=== PATIENT | male | born 1940 | race Caucasian/White ===

== ENCOUNTER 2016-09-17 14:39 | Inpatient (IN) | payer MEDICARE, OTHER ==
[~2016-09-17] VITALS: Ht 170.2 cm; Wt 60.8 kg
[~2016-09-17 14:39] MED LIST: ADV100 IH; ALBU8HFA IH; AMIN30LI28 PO; APIX5TAB PO; BUDE0.5A6 NEB; CYCL10 PO; DIVA500T35 PO; FOLI1 PO; GABA-529 PO; LEVE500T8 PO; LORA1TAB3 PO; MULT-29 PO; PANT40TA PO; SENN-161 PO; TOPI100 PO; ZOLP5 PO
[2016-09-17] MEDS ORDERED: SODIUM CHLORIDE 0.9% 100 ML ONE (14:54)
[2016-09-17] MEDS ORDERED: IOVERSOL 350 MG/ML 100 ML VIAL ONE (14:54)
[2016-09-17 14:56] LABS: BASOPHILS # (AUTO) 0.03 K/uL (0.00-0.20); BASOPHILS % (AUTO) 0.3 % (0.0-2.0); EOSINOPHILS # (AUTO) 0.16 K/uL (0.00-0.70); EOSINOPHILS % (AUTO) 1.67 % (1.0-6.0); HEMATOCRIT 38.6 % (41-53); HEMOGLOBIN 12.4 g/dL (13.5-17.5); LYMPHOCYTES % (AUTO) 21.1 % (22.0-44.0); MEAN CORPUSCULAR HEMOGLOBIN 29.1 pg (26.0-34.0); MEAN CORPUSCULAR HGB CONC 32.1 G/dL (31.0-37.0); MEAN CORPUSCULAR VOLUME 91 fL (80-100); MONOCYTES # (AUTO) 0.8 K/uL (0.1-1.0); MONOCYTES % (AUTO) 8.1 % (2.0-9.0); NEUTROPHILS # (AUTO) 6.6 K/uL (1.8-7.7); NEUTROPHILS % (AUTO) 68.8 % (40.0-70.0); PLATELET COUNT (AUTO) 312 K/uL (150-450); RED BLOOD CELL COUNT(AUTO) 4.26 MIL/uL (4.50-5.90); RED CELL DISTRIBUTION WIDTH 13.8 % (11.5-14.5); WHITE BLOOD COUNT (AUTO) 9.7 K/uL (4.5-11.0)
[2016-09-17 15:13] LABS: ANION GAP 10 mmol/L (8-16); CALCIUM, TOTAL 8.6 mg/dL (8.8-10.5); CARBON DIOXIDE 28 mmol/L (22-29); CHLORIDE 106 mmol/L (98-107); CREATININE 0.78 mg/dL (0.60-1.30); GLOMERULAR FILTR. RATE CALC > 60 mL/min (>60); POTASSIUM 4.8 mmol/L (3.5-5.1); SODIUM SERUM 144 mmol/L (136-145); UREA NITROGEN, BLOOD 20 mg/dL (7-18)
[2016-09-17] MEDS ORDERED: BACL10TA PO (15:19)
[2016-09-17] MEDS ORDERED: VITAD1000 PO (15:19)
[2016-09-17] MEDS ORDERED: ASPI81 PO (15:19)
[2016-09-17] MEDS ORDERED: FAMO20 PO (15:19)
[2016-09-17] MEDS ORDERED: CLOP75 PO (15:19)
[2016-09-17 15:20] LABS: ALANINE AMINOTRANSFERASE 42 U/L (12-78); ALBUMIN 2.7 g/dL (3.4-5.0); ASPARTATE AMINOTRANSFERASE 36 U/L (15-37); BILIRUBIN,TOTAL 0.2 mg/dL (0.1-1.0); CREATINE KINASE, TOTAL 71 U/L (39-308); TOTAL PROTEIN, SERUM 6.8 g/dL (6.4-8.2)
[2016-09-17 18:00] VITALS: BP 123/71
[2016-09-17 20:00] VITALS: BP 130/75
[2016-09-17] MEDS ORDERED: IPRATROPIUM BROMIDE 0.5 MG/2.5 ML NEB SOLUTION NEB PRN (22:30)
[2016-09-17] MEDS ORDERED: ZOLPIDEM TARTRATE 5 MG TABLET PO PRN (22:30)
[2016-09-17] MEDS ORDERED: BISACODYL 10 MG RECTAL RECTAL SUPPOSITORY PR PRN (22:30)
[2016-09-17] MEDS ORDERED: MAGNESIUM HYDROXIDE SUSPENSION 30 ML UDCUP PO PRN (22:30)
[2016-09-17] MEDS ORDERED: LORazepam 1 MG TABLET PO PRN (22:30)
[2016-09-17] MEDS ORDERED: ALBUTEROL SULFATE 2.5 MG/0.5 ML NEB SOLUTION NEB PRN (22:30)
[2016-09-17] MEDS ORDERED: ONDANSETRON HCL 4 MG/2 ML VIAL IVP PRN (22:30)
[2016-09-18] VITALS (10 sets, daily range): BP systolic 117–166; BP diastolic 73–91
[2016-09-18 06:31] LABS: ANION GAP 11 mmol/L (8-16); CALCIUM, TOTAL 8.9 mg/dL (8.8-10.5); CARBON DIOXIDE 26 mmol/L (22-29); CHLORIDE 105 mmol/L (98-107); CREATINE KINASE, TOTAL 93 U/L (39-308); CREATININE 0.59 mg/dL (0.60-1.30); GLOMERULAR FILTR. RATE CALC > 60 mL/min (>60); POTASSIUM 4.5 mmol/L (3.5-5.1); SODIUM SERUM 142 mmol/L (136-145); THYROID STIMULATING HORMONE 2.22 uIU/mL (0.36-3.74); UREA NITROGEN, BLOOD 15 mg/dL (7-18)
[2016-09-18 06:46] LABS: CREATINE KINASE MB < 0.5 ng/mL (0-5)
[2016-09-18 07:23] LABS: BASOPHILS % (AUTO) 0.5 % (0.0-2.0); EOSINOPHILS % (AUTO) 1.3 % (1.0-6.0); HEMATOCRIT 41.9 % (41-53); HEMOGLOBIN 13.4 g/dL (13.5-17.5); LYMPHOCYTES # (AUTO) 2.3 K/uL (1.0-4.8); LYMPHOCYTES % (AUTO) 21.5 % (22.0-44.0); MEAN CORPUSCULAR HEMOGLOBIN 29.1 pg (26.0-34.0); MEAN CORPUSCULAR HGB CONC 31.9 G/dL (31.0-37.0); MEAN CORPUSCULAR VOLUME 91 fL (80-100); MONOCYTES # (AUTO) 0.7 K/uL (0.1-1.0); MONOCYTES % (AUTO) 6.9 % (2.0-9.0); NEUTROPHILS # (AUTO) 7.4 K/uL (1.8-7.7); NEUTROPHILS % (AUTO) 69.8 % (40.0-70.0); PLATELET COUNT (AUTO) 346 K/uL (150-450); RED BLOOD CELL COUNT(AUTO) 4.59 MIL/uL (4.50-5.90); RED CELL DISTRIBUTION WIDTH 14.1 % (11.5-14.5); WHITE BLOOD COUNT (AUTO) 10.6 K/uL (4.5-11.0)
[2016-09-18 08:04] LABS: VITAMIN B12 LEVEL 611 pg/mL (211-911)
[2016-09-18] MEDS: FOLIC ACID 1 MG TABLET PO SCH (08:40)
[2016-09-18] MEDS: LevETIRAcetam 500 MG TABLET PO SCH ×2 (08:40→20:24)
[2016-09-18] MEDS: FLUTICASONE/VILANTEROL 200-25 MCG/INH INHALER [14] IH SCH (08:40)
[2016-09-18] MEDS: MULTIVITAMINS WITH MINERALS, THERAPEUTIC TABLET PO SCH (08:41)
[2016-09-18] MEDS: SENNA 187 MG TABLET PO SCH (08:41)
[2016-09-18] MEDS: GABAPENTIN 100 MG CAPSULE PO SCH ×4 (08:41→20:24)
[2016-09-18] MEDS: CHOLECALCIFEROL (VIT D3) 1,000 UNITS TABLET PO SCH (08:41)
[2016-09-18] MEDS: BACLOFEN 10 MG TABLET PO SCH ×3 (08:41→20:24)
[2016-09-18] MEDS: PANTOPRAZOLE SODIUM 40 MG DR TABLET PO SCH (08:41)
[2016-09-18] MEDS: FAMOTIDINE 20 MG TABLET PO SCH ×2 (08:41→20:24)
[2016-09-18 09:28] LABS: ERYTHROCYTE SEDIMENTATION RATE 38 MM/HR (0-15)
[2016-09-18] MEDS: ACETAMINOPHEN 500 MG TABLET PO PRN (12:00)
[2016-09-18] MEDS: OxyCODONE HCL 5 MG IR TABLET PO PRN ×2 (13:23→23:53)
[2016-09-19 04:33] VITALS: BP 134/75
[2016-09-19] MEDS: OxyCODONE HCL 5 MG IR TABLET PO PRN ×2 (06:11→19:07)
[2016-09-19 06:41] LABS: BASOPHILS # (AUTO) 0.04 K/uL (0.00-0.20); BASOPHILS % (AUTO) 0.4 % (0.0-2.0); EOSINOPHILS # (AUTO) 0.13 K/uL (0.00-0.70); EOSINOPHILS % (AUTO) 1.26 % (1.0-6.0); HEMATOCRIT 40.4 % (41-53); HEMOGLOBIN 12.9 g/dL (13.5-17.5); LYMPHOCYTES # (AUTO) 2.7 K/uL (1.0-4.8); LYMPHOCYTES % (AUTO) 25.4 % (22.0-44.0); MEAN CORPUSCULAR HEMOGLOBIN 29.3 pg (26.0-34.0); MEAN CORPUSCULAR HGB CONC 31.9 G/dL (31.0-37.0); MEAN CORPUSCULAR VOLUME 92 fL (80-100); MONOCYTES % (AUTO) 9.5 % (2.0-9.0); NEUTROPHILS # (AUTO) 6.7 K/uL (1.8-7.7); NEUTROPHILS % (AUTO) 63.5 % (40.0-70.0); PLATELET COUNT (AUTO) 323 K/uL (150-450); RED BLOOD CELL COUNT(AUTO) 4.39 MIL/uL (4.50-5.90); RED CELL DISTRIBUTION WIDTH 14.4 % (11.5-14.5); WHITE BLOOD COUNT (AUTO) 10.5 K/uL (4.5-11.0)
[2016-09-19 06:50] LABS: ANION GAP 9 mmol/L (8-16); CALCIUM, TOTAL 9.3 mg/dL (8.8-10.5); CARBON DIOXIDE 29 mmol/L (22-29); CHLORIDE 106 mmol/L (98-107); CREATININE 0.72 mg/dL (0.60-1.30); GLOMERULAR FILTR. RATE CALC > 60 mL/min (>60); SODIUM SERUM 144 mmol/L (136-145); UREA NITROGEN, BLOOD 13 mg/dL (7-18)
[2016-09-19 07:27] VITALS: BP 135/84
[2016-09-19] MEDS: FLUTICASONE/VILANTEROL 200-25 MCG/INH INHALER [14] IH SCH (09:03)
[2016-09-19] MEDS: GABAPENTIN 100 MG CAPSULE PO SCH ×4 (09:03→20:05)
[2016-09-19] MEDS: PANTOPRAZOLE SODIUM 40 MG DR TABLET PO SCH (09:03)
[2016-09-19] MEDS: FAMOTIDINE 20 MG TABLET PO SCH ×2 (09:04→20:05)
[2016-09-19] MEDS: SENNA 187 MG TABLET PO SCH (09:04)
[2016-09-19] MEDS: FOLIC ACID 1 MG TABLET PO SCH (09:04)
[2016-09-19] MEDS: MULTIVITAMINS WITH MINERALS, THERAPEUTIC TABLET PO SCH (09:04)
[2016-09-19] MEDS: BACLOFEN 10 MG TABLET PO SCH ×3 (09:04→20:05)
[2016-09-19] MEDS: CHOLECALCIFEROL (VIT D3) 1,000 UNITS TABLET PO SCH (09:04)
[2016-09-19] MEDS: LevETIRAcetam 500 MG TABLET PO SCH ×2 (09:04→20:05)
[2016-09-19 11:26] VITALS: BP 119/71
[2016-09-19 15:15] VITALS: BP 116/72
[2016-09-19 19:40] VITALS: BP 132/79
[2016-09-20] VITALS: BP 129/72
[2016-09-20 05:33] VITALS: BP 113/72
[2016-09-20 07:44] VITALS: BP 133/79
[2016-09-20 08:10] LABS: BASOPHILS % (AUTO) 0.5 % (0.0-2.0); EOSINOPHILS % (AUTO) 1.2 % (1.0-6.0); HEMATOCRIT 42.7 % (41-53); HEMOGLOBIN 13.4 g/dL (13.5-17.5); LYMPHOCYTES # (AUTO) 2.3 K/uL (1.0-4.8); LYMPHOCYTES % (AUTO) 22.5 % (22.0-44.0); MEAN CORPUSCULAR HEMOGLOBIN 28.7 pg (26.0-34.0); MEAN CORPUSCULAR HGB CONC 31.4 G/dL (31.0-37.0); MEAN CORPUSCULAR VOLUME 92 fL (80-100); MONOCYTES # (AUTO) 0.7 K/uL (0.1-1.0); NEUTROPHILS % (AUTO) 68.8 % (40.0-70.0); PLATELET COUNT (AUTO) 299 K/uL (150-450); RED BLOOD CELL COUNT(AUTO) 4.66 MIL/uL (4.50-5.90); WHITE BLOOD COUNT (AUTO) 10.1 K/uL (4.5-11.0)
[2016-09-20 08:18] LABS: ANION GAP 8 mmol/L (8-16); CALCIUM, TOTAL 8.9 mg/dL (8.8-10.5); CARBON DIOXIDE 29 mmol/L (22-29); CHLORIDE 106 mmol/L (98-107); CREATININE 0.68 mg/dL (0.60-1.30); GLOMERULAR FILTR. RATE CALC > 60 mL/min (>60); POTASSIUM 4.2 mmol/L (3.5-5.1); SODIUM SERUM 143 mmol/L (136-145); UREA NITROGEN, BLOOD 13 mg/dL (7-18)
[2016-09-20] MEDS: FLUTICASONE/VILANTEROL 200-25 MCG/INH INHALER [14] IH SCH (08:48)
[2016-09-20] MEDS: GABAPENTIN 100 MG CAPSULE PO SCH ×2 (08:49→13:12)
[2016-09-20] MEDS: LevETIRAcetam 500 MG TABLET PO SCH (08:49)
[2016-09-20] MEDS: FAMOTIDINE 20 MG TABLET PO SCH (08:49)
[2016-09-20] MEDS: FOLIC ACID 1 MG TABLET PO SCH (08:49)
[2016-09-20] MEDS: PANTOPRAZOLE SODIUM 40 MG DR TABLET PO SCH (08:49)
[2016-09-20] MEDS: BACLOFEN 10 MG TABLET PO SCH (08:49)
[2016-09-20] MEDS: MULTIVITAMINS WITH MINERALS, THERAPEUTIC TABLET PO SCH (08:50)
[2016-09-20] MEDS: SENNA 187 MG TABLET PO SCH (08:50)
[2016-09-20] MEDS: CHOLECALCIFEROL (VIT D3) 1,000 UNITS TABLET PO SCH (08:50)
[2016-09-20] MEDS: OxyCODONE HCL 5 MG IR TABLET PO PRN (08:52)
[2016-09-20] MEDS ORDERED: PANT40TA PO (09:48)
[2016-09-20] MEDS ORDERED: ACET-66 PO (09:49)
[2016-09-20] MEDS ORDERED: IPRNEB IH (09:50)
[2016-09-20] MEDS ORDERED: BISA10S PR (09:50)
[2016-09-20] MEDS ORDERED: AUD NEB (09:50)
[2016-09-20] MEDS ORDERED: ONDA4 PO (09:51)
[2016-09-20] MEDS ORDERED: MOM30 PO (09:51)
[2016-09-20] MEDS ORDERED: OXYC5 PO (09:52)
[2016-09-20 11:21] VITALS: BP 136/82
[2016-09-20] MEDS: ACETAMINOPHEN 500 MG TABLET PO PRN (14:01)
== END 2016-09-20 14:30 | DRG 65 ==
LOC: EMS 14:41 → ICU 15:57 → 5S 09-18 15:50 → 5N 09-19 21:10
PROVIDERS: ADMIT Internal Medicine Geriatric Medicine; ATTEND Internal Medicine Geriatric Medicine
DX: I63.9 Cerebral infarction, unspecified (principal); J98.11 Atelectasis; E46 Unspecified protein-calorie malnutrition; I69.354 Hemiplegia and hemiparesis following cerebral infarction affecting left non-dominant side; R56.9 Unspecified convulsions; K74.60 Unspecified cirrhosis of liver; J44.9 Chronic obstructive pulmonary disease, unspecified; F01.50 Vascular dementia, unspecified severity, without behavioral disturbance, psychotic disturbance, mood disturbance, and anxiety; B19.20 Unspecified viral hepatitis C without hepatic coma; F17.210 Nicotine dependence, cigarettes, uncomplicated; F10.20 Alcohol dependence, uncomplicated; M48.02 Spinal stenosis, cervical region; D64.9 Anemia, unspecified; G40.909 Epilepsy, unspecified, not intractable, without status epilepticus; I10 Essential (primary) hypertension; R23.3 Spontaneous ecchymoses; Z88.0 Allergy status to penicillin; Z88.6 Allergy status to analgesic agent; Z88.5 Allergy status to narcotic agent; Z88.8 Allergy status to other drugs, medicaments and biological substances; Z79.01 Long term (current) use of anticoagulants; Z79.899 Other long term (current) drug therapy; Z86.718 Personal history of other venous thrombosis and embolism; Z90.49 Acquired absence of other specified parts of digestive tract; Z98.1 Arthrodesis status; Z68.21 Body mass index [BMI] 21.0-21.9, adult
CPT/HCPCS: 70551; 82105; 82306; 82607; 82746; 83036; 83735; 84439; 84443; 85651; 87081; 92526; 92610; 93005; 93970; 97163; 99291; J7050

== ENCOUNTER 2022-04-08 09:46 | Inpatient (IN) | payer MEDICARE, MEDICAID ==
[~2022-04-08] VITALS: Ht 167.6 cm; Wt 73.2 kg
[~2022-04-08 09:46] MED LIST changes: +ACET-66 PO; -ADV100 IH; -ALBU8HFA IH; -AMIN30LI28 PO; +AMLO2.5T29 PO; -APIX5TAB PO; +ASPI-1450 PO; +AUD NEB; +BACL10TA PO; +BISA10S PR; -BUDE0.5A6 NEB; +CEFTR1IV IV; +CHOL100018 PO; +CLOP75TA60 PO; -CYCL10 PO; -DIVA500T35 PO; +FAMO20 PO; +FLUT1BLS IH; +FLUT1DIS4 IH; +FOLI-130 PO; -FOLI1 PO; +GABA-1216 PO; -GABA-529 PO; +IPRNEB IH; +LORA-1000 PO; -LORA1TAB3 PO; +MAGN-169 PO; +ONDA-104 PO; +OXYC5 PO; -TOPI100 PO; +ZOLP-280 PO; -ZOLP5 PO
[2022-04-08] MEDS ORDERED: ALBUTEROL SULFATE 2.5 MG/0.5 ML NEB SOLUTION NEB ONE (10:00)
[2022-04-08 11:36] LABS: BASOPHILS % (AUTO) 0.4 % (0.0-2.0); EOSINOPHILS % (AUTO) 0.4 % (1.0-6.0); HEMATOCRIT 37.1 % (41-53); HEMOGLOBIN 11.6 g/dL (13.5-17.5); LYMPHOCYTES % (AUTO) 13.8 % (22.0-44.0); MEAN CORPUSCULAR HEMOGLOBIN 28.8 pg (26.0-34.0); MEAN CORPUSCULAR HGB CONC 31.4 G/dL (31.0-37.0); MEAN CORPUSCULAR VOLUME 92 fL (80-100); MONOCYTES # (AUTO) 1.3 K/uL (0.1-1.0); MONOCYTES % (AUTO) 8.9 % (2.0-9.0); NEUTROPHILS % (AUTO) 76.5 % (40.0-70.0); PLATELET COUNT (AUTO) 393 K/uL (150-450); RED BLOOD CELL COUNT(AUTO) 4.05 MIL/uL (4.50-5.90); RED CELL DISTRIBUTION WIDTH 14.8 % (11.5-14.5)
[2022-04-08 11:51] LABS: CALCIUM, TOTAL 8.7 mg/dL (8.8-10.5); CREATININE 2.04 mg/dL (0.60-1.30)
[2022-04-08 11:56] LABS: ALBUMIN 1.9 g/dL (3.4-5.0); BILIRUBIN,TOTAL 0.3 mg/dL (0.1-1.0); TOTAL PROTEIN, SERUM 8.1 g/dL (6.4-8.2)
[2022-04-08] MEDS ORDERED: AZITHROMYCIN 500 MG/NS 250 ML IV ONE (13:45)
[2022-04-08 14:17] LABS: APPEARANCE,URINE HAZY (CLEAR); BILIRUBIN,URINE NEGATIVE (NEGATIVE); GLUCOSE, URINE (UA) NEGATIVE (NEGATIVE); KETONES,URINE NEGATIVE (NEGATIVE); LEUKOCYTE ESTERASE ,URINE LARGE (NEGATIVE); NITRATE,URINE NEGATIVE (NEGATIVE); OCCULT BLOOD,URINE TRACE (NEGATIVE); PROTEIN,URINE 30-70 mg/dL (NEGATIVE); SPECIFIC GRAVITIY, URINE 1.018 (1.003-1.030); UROBILINOGEN,URINE <=1.0 mg/dL (<=1.0)
[2022-04-08 14:28] LABS: BACTERIA,URINE Many /HPF (None Seen); RBC,URINE 0-2 /HPF (0-2); WBC,URINE 51-100 /HPF (0-5)
[2022-04-08] MEDS ORDERED: PENTETATE DTPA TC99M/MCL ISOTOPE 1 EA INJ INJ ONE (15:45)
[2022-04-08] MEDS ORDERED: MAA ALBUMIN AGGREGATED TC99M/UD<10MCL ISOTOPE 1 EA INJ INJ ONE (16:05)
[2022-04-08] MEDS ORDERED: ONDANSETRON HCL 4 MG/2 ML VIAL IVP PRN (16:45)
[2022-04-08] MEDS ORDERED: ACETAMINOPHEN 325 MG TABLET PO PRN (16:45)
[2022-04-08] MEDS ORDERED: BENZONATATE 100 MG CAPSULE PO PRN (16:45)
[2022-04-08] MEDS ORDERED: ALBUTEROL SULFATE 2.5 MG/0.5 ML NEB SOLUTION NEB PRN (16:45)
[2022-04-08] MEDS ORDERED: IPRATROPIUM BROMIDE 0.5 MG/2.5 ML NEB SOLUTION NEB PRN (16:45)
[2022-04-08] MEDS ORDERED: BISACODYL 10 MG RECTAL RECTAL SUPPOSITORY PR PRN (16:45)
[2022-04-08] MEDS ORDERED: MAGNESIUM HYDROXIDE SUSPENSION 30 ML UDCUP PO PRN (16:45)
[2022-04-08] MEDS ORDERED: BACL5TAB PO (17:33)
[2022-04-08] MEDS ORDERED: ACET-2247 PO (17:34)
[2022-04-08] MEDS ORDERED: POLY15DR29 OU (17:34)
[2022-04-08] MEDS ORDERED: BISA-151 PO ×2 (17:43→17:45)
[2022-04-08] MEDS ORDERED: CEFX2I IM (17:43)
[2022-04-08] MEDS ORDERED: DICY20TA95 PO (17:43)
[2022-04-08] MEDS ORDERED: CIPR500T10 PO (17:45)
[2022-04-08] MEDS ORDERED: DULO-114 PO (17:45)
[2022-04-08] MEDS ORDERED: MOME13HF2 IH (17:46)
[2022-04-08] MEDS ORDERED: NA P133E4 PR (17:46)
[2022-04-08] MEDS ORDERED: GABA-1181 PO (17:46)
[2022-04-08] MEDS ORDERED: POLY17PO47 PO (17:53)
[2022-04-08] MEDS ORDERED: HYDR5TAB14 PO (17:53)
[2022-04-08] MEDS ORDERED: KETO30CR21 TP (17:53)
[2022-04-08] MEDS: MethylPREDNISolone SOD SUCC 125 MG/2 ML VIAL IVP SCH ×2 (17:59→23:24)
[2022-04-08] MEDS ORDERED: MULT-248 PO (18:01)
[2022-04-08] MEDS ORDERED: CHOL25TA4 PO (18:01)
[2022-04-08] MEDS: IPRATROPIUM BROMIDE 0.5 MG/2.5 ML NEB SOLUTION NEB SCH (20:02)
[2022-04-08] MEDS: ALBUTEROL SULFATE 2.5 MG/0.5 ML NEB SOLUTION NEB SCH (20:02)
[2022-04-08 23:00] VITALS: BP 118/72
[2022-04-08] MEDS: BENZONATATE 100 MG CAPSULE PO SCH (23:24)
[2022-04-08] MEDS: LevETIRAcetam 500 MG TABLET PO SCH (23:25)
[2022-04-08] MEDS: GuaiFENesin SR 600 MG ER TABLET PO SCH (23:25)
[2022-04-08] MEDS: DOCUSATE SODIUM 100 MG CAPSULE PO SCH (23:25)
[2022-04-08] MEDS: HEPARIN SODIUM,PORCINE 5,000 UNITS/ML VIAL SQ SCH (23:25)
[2022-04-09] MEDS: ALBUTEROL SULFATE 2.5 MG/0.5 ML NEB SOLUTION NEB SCH ×4 (02:00→20:19)
[2022-04-09] MEDS: IPRATROPIUM BROMIDE 0.5 MG/2.5 ML NEB SOLUTION NEB SCH ×4 (02:00→20:19)
[2022-04-09 05:26] VITALS: BP 135/52
[2022-04-09] MEDS: MethylPREDNISolone SOD SUCC 125 MG/2 ML VIAL IVP SCH ×3 (05:27→21:00)
[2022-04-09 07:47] VITALS: BP 120/70
[2022-04-09] MEDS: CHOLECALCIFEROL (VIT D3) 1,000 UNITS [25 MCG] TABLET PO SCH (08:54)
[2022-04-09] MEDS: ASPIRIN 81 MG CHEWABLE TABLET PO SCH (08:54)
[2022-04-09] MEDS: DOCUSATE SODIUM 100 MG CAPSULE PO SCH ×2 (08:54→21:00)
[2022-04-09] MEDS: GuaiFENesin SR 600 MG ER TABLET PO SCH ×2 (08:54→21:00)
[2022-04-09] MEDS: BENZONATATE 100 MG CAPSULE PO SCH ×3 (08:54→20:59)
[2022-04-09] MEDS: HEPARIN SODIUM,PORCINE 5,000 UNITS/ML VIAL SQ SCH ×2 (08:54→16:54)
[2022-04-09] MEDS: PANTOPRAZOLE SODIUM 40 MG DR TABLET PO SCH (08:54)
[2022-04-09] MEDS: LevETIRAcetam 500 MG TABLET PO SCH ×2 (08:55→21:00)
[2022-04-09] MEDS: FOLIC ACID 1 MG TABLET PO SCH (08:55)
[2022-04-09] MEDS: CLOPIDOGREL BISULFATE 75 MG TABLET PO SCH (08:55)
[2022-04-09] MEDS ORDERED: AmLODIPine BESYLATE 2.5 MG TABLET PO SCH (09:00)
[2022-04-09] MEDS ORDERED: SODIUM CHLORIDE 0.9% 1,000 ML ONE (09:35)
[2022-04-09 11:03] VITALS: BP 126/65
[2022-04-09] MEDS: FLUTICASONE/VILANTEROL 200-25 MCG/INH INHALER [14] IH SCH (13:12)
[2022-04-09 15:24] LABS: EOSINOPHILS % (AUTO) 0 % (1.0-6.0); HEMATOCRIT 33.6 % (41-53); HEMOGLOBIN 10.7 g/dL (13.5-17.5); LYMPHOCYTES # (AUTO) 0.9 K/uL (1.0-4.8); LYMPHOCYTES % (AUTO) 7.3 % (22.0-44.0); MEAN CORPUSCULAR HEMOGLOBIN 28.6 pg (26.0-34.0); MEAN CORPUSCULAR HGB CONC 31.9 G/dL (31.0-37.0); MEAN CORPUSCULAR VOLUME 90 fL (80-100); MONOCYTES # (AUTO) 0.3 K/uL (0.1-1.0); MONOCYTES % (AUTO) 2.1 % (2.0-9.0); NEUTROPHILS # (AUTO) 10.8 K/uL (1.8-7.7); PLATELET COUNT (AUTO) 405 K/uL (150-450); RED BLOOD CELL COUNT(AUTO) 3.74 MIL/uL (4.50-5.90); RED CELL DISTRIBUTION WIDTH 14.7 % (11.5-14.5)
[2022-04-09 15:35] LABS: CALCIUM, TOTAL 8.8 mg/dL (8.8-10.5); CREATININE 2.03 mg/dL (0.60-1.30); POTASSIUM 4.5 mmol/L (3.5-5.1)
[2022-04-09 15:36] VITALS: BP 110/50
[2022-04-09 15:37] LABS: NEUTROPHILS % (AUTO) 90.6 % (40.0-70.0)
[2022-04-09] MEDS: AZITHROMYCIN 500 MG/NS 250 ML IV SCH (15:46)
[2022-04-09 19:45] VITALS: BP 128/67
[2022-04-10] VITALS (7 sets, daily range): BP systolic 97–139; BP diastolic 60–74
[2022-04-10] MEDS: HEPARIN SODIUM,PORCINE 5,000 UNITS/ML VIAL SQ SCH ×3 (00:56→18:27)
[2022-04-10] MEDS: ZOLPIDEM TARTRATE 5 MG TABLET PO PRN (01:01)
[2022-04-10] MEDS: IPRATROPIUM BROMIDE 0.5 MG/2.5 ML NEB SOLUTION NEB SCH ×4 (02:49→20:04)
[2022-04-10] MEDS: ALBUTEROL SULFATE 2.5 MG/0.5 ML NEB SOLUTION NEB SCH ×4 (02:49→20:03)
[2022-04-10 05:51] LABS: EOSINOPHILS % (AUTO) 0 % (1.0-6.0); HEMATOCRIT 32.6 % (41-53); HEMOGLOBIN 10.6 g/dL (13.5-17.5); LYMPHOCYTES % (AUTO) 6.7 % (22.0-44.0); MEAN CORPUSCULAR HEMOGLOBIN 28.8 pg (26.0-34.0); MEAN CORPUSCULAR HGB CONC 32.4 G/dL (31.0-37.0); MEAN CORPUSCULAR VOLUME 89 fL (80-100); MONOCYTES # (AUTO) 0.4 K/uL (0.1-1.0); MONOCYTES % (AUTO) 2.6 % (2.0-9.0); PLATELET COUNT (AUTO) 437 K/uL (150-450); RED BLOOD CELL COUNT(AUTO) 3.67 MIL/uL (4.50-5.90); RED CELL DISTRIBUTION WIDTH 14.6 % (11.5-14.5)
[2022-04-10] MEDS: MethylPREDNISolone SOD SUCC 125 MG/2 ML VIAL IVP SCH ×4 (05:53→18:29)
[2022-04-10 06:05] LABS: CALCIUM, TOTAL 8.7 mg/dL (8.8-10.5); CREATININE 1.81 mg/dL (0.60-1.30); POTASSIUM 4.2 mmol/L (3.5-5.1)
[2022-04-10 06:15] LABS: NEUTROPHILS % (AUTO) 90.7 % (40.0-70.0)
[2022-04-10] MEDS: BENZONATATE 100 MG CAPSULE PO SCH ×3 (08:08→20:40)
[2022-04-10] MEDS: PANTOPRAZOLE SODIUM 40 MG DR TABLET PO SCH (08:10)
[2022-04-10] MEDS: FOLIC ACID 1 MG TABLET PO SCH (08:10)
[2022-04-10] MEDS: GuaiFENesin SR 600 MG ER TABLET PO SCH ×2 (08:11→20:40)
[2022-04-10] MEDS: CHOLECALCIFEROL (VIT D3) 1,000 UNITS [25 MCG] TABLET PO SCH (08:11)
[2022-04-10] MEDS: CLOPIDOGREL BISULFATE 75 MG TABLET PO SCH (08:11)
[2022-04-10] MEDS: LevETIRAcetam 500 MG TABLET PO SCH ×2 (08:11→20:40)
[2022-04-10] MEDS: ASPIRIN 81 MG CHEWABLE TABLET PO SCH (08:11)
[2022-04-10] MEDS: DOCUSATE SODIUM 100 MG CAPSULE PO SCH ×2 (08:11→20:40)
[2022-04-10] MEDS ORDERED: DILTIAZEM HCL 5 MG/ML 5 ML VIAL IVP ONE ×2 (08:30→15:30)
[2022-04-10] MEDS ORDERED: DIGOXIN 125 MCG TABLET PO ONE (09:45)
[2022-04-10] MEDS: FLUTICASONE/VILANTEROL 200-25 MCG/INH INHALER [14] IH SCH (09:50)
[2022-04-10] MEDS: AZITHROMYCIN 500 MG/NS 250 ML IV SCH (14:16)
[2022-04-10] MEDS ORDERED: DILTIAZEM HCL 125 MG in DEXTROSE 5%-WATER 100 ML IV SCH (15:30)
[2022-04-10] MEDS ORDERED: AMIODARONE HCL 150 MG in DEXTROSE 5%-WATER 97 ML IV ONE (15:50)
[2022-04-10] MEDS ORDERED: AMIODARONE HCL 360 MG in DEXTROSE 5%-WATER 242.8 ML IV ONE (16:00)
[2022-04-10] MEDS ORDERED: AMIODARONE HCL 540 MG in DEXTROSE 5%-WATER 239.2 ML IV ONE (22:00)
[2022-04-11] MEDS: HEPARIN SODIUM,PORCINE 5,000 UNITS/ML VIAL SQ SCH ×3 (00:17→16:23)
[2022-04-11] MEDS: MethylPREDNISolone SOD SUCC 125 MG/2 ML VIAL IVP SCH ×4 (00:17→18:29)
[2022-04-11 01:00] VITALS: BP 129/67
[2022-04-11] MEDS: IPRATROPIUM BROMIDE 0.5 MG/2.5 ML NEB SOLUTION NEB SCH ×4 (03:16→20:02)
[2022-04-11] MEDS: ALBUTEROL SULFATE 2.5 MG/0.5 ML NEB SOLUTION NEB SCH ×4 (03:16→20:01)
[2022-04-11 04:37] VITALS: BP 133/78
[2022-04-11 07:24] LABS: BASOPHILS % (AUTO) 0.1 % (0.0-2.0); EOSINOPHILS % (AUTO) 0 % (1.0-6.0); HEMATOCRIT 36.5 % (41-53); HEMOGLOBIN 11.6 g/dL (13.5-17.5); LYMPHOCYTES # (AUTO) 0.6 K/uL (1.0-4.8); LYMPHOCYTES % (AUTO) 5.2 % (22.0-44.0); MEAN CORPUSCULAR HEMOGLOBIN 28.8 pg (26.0-34.0); MEAN CORPUSCULAR HGB CONC 31.8 G/dL (31.0-37.0); MEAN CORPUSCULAR VOLUME 91 fL (80-100); MONOCYTES # (AUTO) 0.2 K/uL (0.1-1.0); MONOCYTES % (AUTO) 1.4 % (2.0-9.0); NEUTROPHILS # (AUTO) 10.8 K/uL (1.8-7.7); PLATELET COUNT (AUTO) 449 K/uL (150-450); RED BLOOD CELL COUNT(AUTO) 4.02 MIL/uL (4.50-5.90); RED CELL DISTRIBUTION WIDTH 14.6 % (11.5-14.5)
[2022-04-11 07:31] LABS: NEUTROPHILS % (AUTO) 93.3 % (40.0-70.0)
[2022-04-11 08:05] VITALS: BP 133/70
[2022-04-11 08:26] LABS: CALCIUM, TOTAL 8.5 mg/dL (8.8-10.5); CREATININE 1.79 mg/dL (0.60-1.30)
[2022-04-11] MEDS: FLUTICASONE/VILANTEROL 200-25 MCG/INH INHALER [14] IH SCH (09:00)
[2022-04-11] MEDS: METOPROLOL TARTRATE 25 MG TABLET PO SCH ×2 (09:00→22:23)
[2022-04-11] MEDS: GuaiFENesin SR 600 MG ER TABLET PO SCH ×2 (09:29→22:23)
[2022-04-11] MEDS: BENZONATATE 100 MG CAPSULE PO SCH ×3 (09:30→22:22)
[2022-04-11] MEDS: DOCUSATE SODIUM 100 MG CAPSULE PO SCH ×2 (09:30→22:23)
[2022-04-11] MEDS: CLOPIDOGREL BISULFATE 75 MG TABLET PO SCH (09:30)
[2022-04-11] MEDS: LevETIRAcetam 500 MG TABLET PO SCH ×2 (09:31→22:22)
[2022-04-11] MEDS: FOLIC ACID 1 MG TABLET PO SCH (09:31)
[2022-04-11] MEDS: PANTOPRAZOLE SODIUM 40 MG DR TABLET PO SCH (09:31)
[2022-04-11] MEDS: ASPIRIN 81 MG CHEWABLE TABLET PO SCH (09:31)
[2022-04-11] MEDS: AMIODARONE HCL 200 MG TABLET PO SCH ×3 (09:36→22:23)
[2022-04-11 09:37] LABS: THYROID STIMULATING HORMONE 1.1 uIU/mL (0.36-3.74)
[2022-04-11] MEDS: CHOLECALCIFEROL (VIT D3) 1,000 UNITS [25 MCG] TABLET PO SCH (09:41)
[2022-04-11 11:40] VITALS: BP 131/74
[2022-04-11] MEDS: AZITHROMYCIN 500 MG/NS 250 ML IV SCH (15:27)
[2022-04-11] MEDS ORDERED: AMIODARONE HCL 750 MG in DEXTROSE 5%-WATER 485 ML IV SCH (16:00)
[2022-04-11 16:20] VITALS: BP 142/69
[2022-04-11 19:43] VITALS: BP 156/90
[2022-04-11] MEDS: ZOLPIDEM TARTRATE 5 MG TABLET PO PRN (22:23)
[2022-04-12] MEDS: MethylPREDNISolone SOD SUCC 125 MG/2 ML VIAL IVP SCH ×2 (00:20→05:36)
[2022-04-12] MEDS: HEPARIN SODIUM,PORCINE 5,000 UNITS/ML VIAL SQ SCH ×2 (00:21→08:03)
[2022-04-12 00:44] VITALS: BP 148/81
[2022-04-12] MEDS: ALBUTEROL SULFATE 2.5 MG/0.5 ML NEB SOLUTION NEB SCH ×3 (02:00→14:49)
[2022-04-12] MEDS: IPRATROPIUM BROMIDE 0.5 MG/2.5 ML NEB SOLUTION NEB SCH ×3 (02:00→14:49)
[2022-04-12 05:40] VITALS: BP 148/70
[2022-04-12 07:36] VITALS: BP 152/83
[2022-04-12] MEDS: GuaiFENesin SR 600 MG ER TABLET PO SCH (08:04)
[2022-04-12] MEDS: BENZONATATE 100 MG CAPSULE PO SCH (08:04)
[2022-04-12] MEDS: CLOPIDOGREL BISULFATE 75 MG TABLET PO SCH (08:05)
[2022-04-12] MEDS: ASPIRIN 81 MG CHEWABLE TABLET PO SCH (08:06)
[2022-04-12] MEDS: AMIODARONE HCL 200 MG TABLET PO SCH (08:07)
[2022-04-12] MEDS: LevETIRAcetam 500 MG TABLET PO SCH (08:07)
[2022-04-12] MEDS: DOCUSATE SODIUM 100 MG CAPSULE PO SCH (08:07)
[2022-04-12] MEDS: METOPROLOL TARTRATE 25 MG TABLET PO SCH (08:08)
[2022-04-12] MEDS: FOLIC ACID 1 MG TABLET PO SCH (08:08)
[2022-04-12] MEDS: CHOLECALCIFEROL (VIT D3) 1,000 UNITS [25 MCG] TABLET PO SCH (08:08)
[2022-04-12] MEDS: PANTOPRAZOLE SODIUM 40 MG DR TABLET PO SCH (08:08)
[2022-04-12] MEDS ORDERED: APIXABAN 2.5 MG TABLET PO SCH (09:00)
[2022-04-12 11:19] VITALS: BP 122/67
[2022-04-12] MEDS ORDERED: AZITHROMYCIN 500 MG TABLET PO SCH (12:00)
[2022-04-12] MEDS: FLUTICASONE/VILANTEROL 200-25 MCG/INH INHALER [14] IH SCH (12:32)
[2022-04-12 15:12] VITALS: BP 136/72
== END 2022-04-12 15:45 | DRG 70 ==
LOC: EMS 09:55 → 5S 20:23
PROVIDERS: ADMIT Internal Medicine; ATTEND Internal Medicine
PROC: 3E0F7SF Introduction of Other Gas into Respiratory Tract, Via Natural or Artificial Opening (ICD-10-PCS; principal; 2022-04-08)
DX: G93.41 Metabolic encephalopathy (principal); J18.9 Pneumonia, unspecified organism; J96.21 Acute and chronic respiratory failure with hypoxia; R53.2 Functional quadriplegia; R65.11 Systemic inflammatory response syndrome (SIRS) of non-infectious origin with acute organ dysfunction; J44.1 Chronic obstructive pulmonary disease with (acute) exacerbation; N17.9 Acute kidney failure, unspecified; I12.9 Hypertensive chronic kidney disease with stage 1 through stage 4 chronic kidney disease, or unspecified chronic kidney disease; N18.30 Chronic kidney disease, stage 3 unspecified; D64.9 Anemia, unspecified; G40.909 Epilepsy, unspecified, not intractable, without status epilepticus; I48.0 Paroxysmal atrial fibrillation; F10.20 Alcohol dependence, uncomplicated; F41.9 Anxiety disorder, unspecified; D63.1 Anemia in chronic kidney disease; E78.5 Hyperlipidemia, unspecified; Z88.5 Allergy status to narcotic agent; Z88.0 Allergy status to penicillin; Z88.8 Allergy status to other drugs, medicaments and biological substances; Z79.82 Long term (current) use of aspirin; Z99.81 Dependence on supplemental oxygen; Z86.718 Personal history of other venous thrombosis and embolism; Z79.899 Other long term (current) drug therapy; Z98.1 Arthrodesis status; Z79.01 Long term (current) use of anticoagulants; Z86.73 Personal history of transient ischemic attack (TIA), and cerebral infarction without residual deficits
CPT/HCPCS: 71045; 78582; 80048; 80053; 81001; 82550; 83605; 83880; 84443; 84484; 85025; 85379; 87040; 87081; 87086; 93005; 93306; 93970; 94640; 99285; A9539; A9540; G0378; J0282; J0456; J1644; J2930; J3490; J7030; J7060; Q9967; 36415-L1; 36415-TC; J7613